=== PATIENT | female | born 1970 | race Caucasian/White ===

== ENCOUNTER 2018-09-10 07:13 | Emergency (ER) | payer OTHER ==
[~2018-09-10] VITALS: Ht 147.3 cm; Wt 51.7 kg
[~2018-09-10 07:13] MED LIST: ADVIL; ALPRAZOLAM 0.0.25 MG PO; CLEOCIN HCL300 MG PO; DARVOCET-N 1001 EAC1 PO; LEVORA-281 EACH PO; TIGAN300 MG PO; VENTOLIN17 GM INH; XANAX 0.25 MG0.25 MG PO; ZYRTEC10 M2 PO
[2018-09-10] MEDS ORDERED: ACYCLOVIR 400400 MG PO (07:35)
[2018-09-10] MEDS ORDERED: ZOVIA 1-35E1 EACH PO (07:36)
[2018-09-10] MEDS ORDERED: TIGAN300 MG PO (07:36)
[2018-09-10] MEDS ORDERED: IBUPROFEN 400400 M2 PO (07:37)
[2018-09-10] MEDS ORDERED: PROBIOTIC1 EAC1 PO (07:37)
[2018-09-10] MEDS ORDERED: ZYRTEC10 M5 PO (07:37)
[2018-09-10] MEDS ORDERED: CENTRUM SILVER1 EAC4 PO (07:38)
[2018-09-10] MEDS ORDERED: NEPHROCAPS SOFT1 CAP PO (07:38)
[2018-09-10] MEDS ORDERED: B COMPLEX1 EACH PO (07:38)
[2018-09-10 07:59] LABS: URINE BILIRUBIN NEGATIVE (Negative); URINE BLOOD 2+ (Negative); URINE CLARITY CLEAR; URINE COLOR YELLOW; URINE GLUCOSE-RANDOM NEGATIVE (Negative); URINE KETONES NEGATIVE (Negative); URINE LEUKOCYTES-REFLEX NEGATIVE (Negative); URINE NITRITE-REFLEX NEGATIVE (Negative); URINE PROTEIN 1+ (Negative); URINE UROBILINOGEN 0.2 E.U./dl (0.2-1.0)
[2018-09-10 08:01] LABS: ABSOLUTE EOSINOPHILS 0.1 thou/uL (0.0-0.7); ABSOLUTE LYMPHOCYTES 0.8 thou/uL (0.8-5.3); ABSOLUTE MONOCYTES 0.7 thou/uL (0.0-1.2); ABSOLUTE NEUTROPHILS 2.8 thou/uL (1.6-8.1); BASOPHILS 0.6 %; EOSINOPHILS 2.1 %; HEMATOCRIT 40.2 % (37.0-47.0); HEMOGLOBIN 13.9 gm/dL (12.0-15.0); LYMPHOCYTES 18.6 %; MCH 33.2 pg (26.0-34.0); MCHC 34.6 g/dL (28.0-37.0); MCV 95.9 fL (80.0-100.0); MONOCYTES 15.2 %; MPV 9.1 fl. (7.2-11.1); NUCLEATED RBCS 0 /100WBC; PLATELET COUNT* 195 thou/uL (150-400); POLYS 63.5 %; RBC 4.19 mil/uL (4.20-5.00); RDW-CV 12.1 % (10.5-14.5); WBC 4.4 thou/uL (4.0-11.0)
[2018-09-10 08:20] LABS: SQUAMOUS 4-10 Moderate /LPF (0-3)
[2018-09-10 08:21] LABS: BACTERIA-REFLEX 1-9 Few /HPF (None Seen); CASTS None Seen /LPF (None Seen); CRYSTALS None Seen /LPF (None Seen); URINE WBC-REFLEX 0-5 Rare /HPF (0-5)
[2018-09-10 08:29] LABS: BE 0.6 mmol/L (-2 to +3); PCO2 29.8 mmHg (35.0-45.0); PO2 106.5 mmHg (75.0-100.0); pH 7.501 (7.340-7.450)
[2018-09-10 08:33] LABS: INFLUENZA A ANTIGEN None Detected (None Detect)
[2018-09-10 09:00] LABS: CALCIUM 9.2 mg/dL (8.5-10.1); CREATININE 0.8 mg/dL (0.6-1.3); POTASSIUM 4.3 mmol/L (3.5-5.1)
[2018-09-10 09:04] LABS: ALBUMIN 3.8 g/dL (3.4-5.0); MAGNESIUM 1.9 mg/dL (1.8-2.4); TOTAL BILIRUBIN 0.3 mg/dL (<0.1-1.0)
[2018-09-10] MEDS ORDERED: NORCO 5-325 TA1 EACH PO (10:01)
[2018-09-10] MEDS ORDERED: IBUPROFEN 800800 MG PO (10:01)
[2018-09-10] MEDS ORDERED: VALIUM5 MG PO (10:01)
[2018-09-10] MEDS ORDERED: TUSSIONEX PENN115 ML PO (10:05)
[2018-09-10 11:01] VITALS: BP 101/72
== END 2018-09-10 11:03 | disposition home or self-care (01) ==
LOC: M.ERS 07:13
PROVIDERS: Personal Emergency Response Attendant
DX: J11.1 Influenza due to unidentified influenza virus with other respiratory manifestations (principal); F41.9 Anxiety disorder, unspecified; Z98.890 Other specified postprocedural states; Z88.1 Allergy status to other antibiotic agents; Z88.2 Allergy status to sulfonamides; Z88.8 Allergy status to other drugs, medicaments and biological substances

== ENCOUNTER → 2021-08-21 | Outpatient (CLI) | payer OTHER ==
[~2021-08-21] MED LIST changes: +ACYCLOVIR 400400 MG PO; +ATORVASTATIN CA80 MG PO; +B COMPLEX1 EACH PO; +CENTRUM SILVER1 EAC4 PO; +IBUPROFEN 400400 M2 PO; +IBUPROFEN 800800 MG PO; +MECLIZINE HCL25 M1 PO; +NEPHROCAPS SOFT1 CAP PO; +NORCO 5-325 TA1 EACH PO; +PEPCID20 MG PO; +PLAVIX 75 MG TA75 MG PO; +PROBIOTIC1 EAC1 PO; +TRIMETHOBENZAM300 M1 PO; +TUSSIONEX PENN115 ML PO; +VALIUM5 MG PO; +VITAMIN D325 MC5 PO; +ZINC50 MG PO; +ZOVIA 1-35E1 EACH PO; +ZYRTEC10 M5 PO
== END ==
LOC: M.CT 08:38
PROVIDERS: ATTEND Internal Medicine Cardiovascular Disease
DX: Z13.6 Encounter for screening for cardiovascular disorders (principal); I25.10 Atherosclerotic heart disease of native coronary artery without angina pectoris

== ENCOUNTER → 2021-08-24 | Outpatient (CLI) | payer OTHER ==
[2021-08-24 11:29] VITALS: BP 121/67
--- NOTE | 2021-08-25 09:13 | CARD ---
[place] [address] CARDIAC CATH REPORT Name: L[place] Room: [facility]#: [id number] Admission: 08/24/21 Attend Phys: [place] Santacruz MD, F Discharge: Date of : 70 Report #: [id number] THIS REPORT FOR: cc: Fili Wood MD, Steven E. MD Blick, David R. MD [facility] ~ cc: Fili Wood MD DATE OF SERVICE: 08/24/2021 TITLE OF PROCEDURE: Implantation of a [employer]onic LINQ device. INDICATION: LINQ implantation was requested in this patient with a history of stroke. DESCRIPTION OF PROCEDURE: The patient was brought to the cardiac catheterization lab in a fasting state. The left anterior chest area was cleaned with ChloraPrep and sterilely draped in the usual fashion. The area was anesthetized with 1% lidocaine. A LINQ Medtronic implantable pvc monitor was then inserted after making incision with a blade. After the procedure, hemostasis was achieved with direct pressure. Dermabond was applied over the incision. Analysis of the device revealed R waves greater than 0.4 millivolts and was felt to be adequate. IMPRESSION: Successful implantation of a [employer] LINQ implantable pvc monitor. <ELECTRONICALLY SIGNED> By: Montana Santacruz MD, [facility] 08/25/21 0913 1238 [id number] Santacruz MD, AASHISH /nt
== END | disposition home or self-care (01) ==
LOC: M.CL
PROVIDERS: ATTEND Internal Medicine Cardiovascular Disease
DX: I63.423 Cerebral infarction due to embolism of bilateral anterior cerebral arteries (principal); I10 Essential (primary) hypertension; E78.49 Other hyperlipidemia; Z98.890 Other specified postprocedural states; Z79.899 Other long term (current) drug therapy